=== PATIENT | female | born 1970 | race Caucasian/White ===

== ENCOUNTER → 2016-06-24 | Outpatient (CLI) | payer OTHER ==
[~2016-06-24] MED LIST: AFRIN NASAL SPR15 ML NS; ALBUTEROL17 GM INH; AMITRYPTYLINE; AMOX TR-K CLV 81 TA2; AMOXICILLIN500 M1 PO; ANTIVERT PO; ATARAX PO; BACTRIM DS TABL1 TAB PO; BENTYL10 MG DOB; BENZONATATE PO; BUSPAR PO; CELEXA PO; CIPRO PO; CLEOCIN HCL300 M1 PO; DESYREL100 MG PO; DICLOFENAC PO; DOXYCYCLINE HY100 M1 PO; FLEXERIL PO; FLEXERIL10 MG PO; GUAIFENSEN DM PO; IBUPROFEN800 MG PO; KLONOPIN PO; KLONOPIN0.5 M1 PO; KLONOPIN1 MG PO; LAMICTAL PO; LAMICTAL100 MG PO; LEVAQUIN PO; LISINOPRIL; MAGIC MOUTH WASH PO; MEDROL PO; METOPROLOL SUCC25 MG PO; MOBIC PO; NAPROXEN250 MG PO; NEURONTIN PO; NEURONTIN100 MG PO; NITROGLYGERIN0.4 MG SL; NO MEDICATIONS; OMEPRAZOLE20 M1 PO; OMEPRAZOLE40 MG PO; PERCOCET5/325 PO; PHENERGAN25 MG PO; PREDNISONE PO; PRILOSEC20 MG; QVAR7.3 GM INH; REMERON PO; SEROQUEL PO; SEROQUEL100 MG PO; SEROQUEL25 MG PO; TRAZODONE PO; ULTRAM PO; VOLTAREN75 MG PO; ZITHROMAX PO; ZOFRAN ODT4 MG PO; ZYRTEC-D T1 TAB.SR . PO; ZYRTEC-D TABLE1 EACH PO
--- NOTE | ~2016-06-24 | MR17 ---
[facility] A Service of [facility] & [facility] RADIOLOGY TEXT RESULTS PATIENT: FITO CONRAD LOCATION: [facility] : 71 UNIT #: [id number] AGE: [address]: Samir Grace II, MD SEX: F ORDER DR: [id number] [facility] [address] [place], [place] [address] [id number] O MR#: [id number] Acc #: [id number] NAME: FITO CONRAD. : 1970 SEX: F STUDY DATE/TIME: 06/24/2016 13:03 UNIT: [facility] ROOM: STUDY DESCRIPTION: MR Brain WWo Contrast Attending Physician: Samir Grace II., M.D. Referring Physician: Samir Grace II., M.D. Ordering Physician: Samir Grace II., M.D. Primary Care Physician: Indiana Higgins M.D. MRI CENTER REPORT This report is preliminary unless electronic signature is present. EXAM MRI of the brain with and without. HISTORY Numbness. Continued symptoms of blurred vision and slurred speech with clinical concern for multiple sclerosis though a lumbar puncture was negative for patient. Bilateral extremity numbness, arms and legs. Please reevaluate for the possibility of multiple sclerosis. Patient has a history of melanoma. COMMENT MRI of the brain was performed prior to and following intravenous administration of 11 mL of MultiHance. There is redemonstration of nonspecific white matter signal abnormality with multiple small subcortical lesions. Most of these are only a few millimeter in dimension but there is 1 focal lesion at the right lateral frontal subcortical white matter that measures up to about 11 mm in dimension. Is was present previously and is not changed. Minimal signal abnormality at the anterior aspect of the right external capsule and possibly in the right putamen. The putamen lesion might be new since it is was not seen previously. There is no MRI evidence for intracranial hemorrhage. There is no abnormally restricted diffusion. I believe the white matter disease is fairly stable. There is no extraaxial fluid collection. The major intracranial flow voids are maintained. The mastoid air cells are clear. Following contrast administration, there is no pathologic intracranial enhancement. No intracranial mass lesion. Redemonstrated is extensive paranasal sinus disease. This includes complete opacification of the frontal sinuses with signal characteristics suggestive of inspissated secretions. possibly fungal colonization. Also, again seen is opacification of the anterior ethmoid air cells, right greater than left. There is mucosal disease in the right greater than STS. [facility] A Service of [facility] RADIOLOGY TEXT RESULTS PATIENT: FITO CONRAD LOCATION: [facility] : 71 UNIT #: [id number] AGE: [address]: Samir Grace II, MD SEX: F ORDER DR: left maxillary sinus with a small air-fluid level in the right maxillary sinus. Paranasal sinus disease present previously with some improvement overall since prior, particularly in the appearance of the maxillary and sphenoid sinuses but the frontal sinus disease is chronic and unchanged to mildly worsened. I cannot exclude some component of expansion at this time and presence of a possible mucocele in the differential. Correlation with CT of the paranasal sinuses would be helpful to assess bony integrity. IMPRESSION 1. Redemonstration of nonspecific white matter signal abnormality. It is not associated with mass effect, pathologic enhancement, or restricted diffusion and it is probably not significantly changed from study of 05/06/2014. The differential based upon imaging still includes demyelinating disease such as multiple sclerosis with other considerations being Lyme disease, sequelae of severe longstanding migraine , sequelae of less likely entities such as vasculitis. 2. Tiny lesion in right putamen, probably new from prior. Very nonspecific. 3. Redemonstration of extensive paranasal sinus disease. This includes an air-fluid level in the right maxillary sinus consistent with a component of acute sinusitis. This also includes complete opacification of the frontal sinuses with possible component expansion. Recommend correlation with a CT of the paranasal sinuses without contrast to assess bony integrity. Possibility of mucocele formation in the right frontal sinus is considered in the differential. STAT * RESULT Dictated by... Monika Jones M.D. THIS IS AN ELECTRONICALLY VERIFIED REPORT Monika Jones M.D. at 06/25/2016 5:26 PM STEPAN/ashley TD: 06/25/2016 16:16 JOB #: [id number] MRI CENTER REPORT Page 1 of 1 COPY
== END | disposition home or self-care (01) ==
LOC: CMRI 12:26
DX: R20.0 Anesthesia of skin (principal); R90.82 White matter disease, unspecified; G93.89 Other specified disorders of brain; J32.9 Chronic sinusitis, unspecified
CPT/HCPCS: 70553; A9577

== ENCOUNTER 2016-08-13 15:21 | Observation (INO) | payer OTHER ==
--- NOTE | ~2016-08-13 | EKG ---
PATIENT: FITO CONRAD UNIT #: [id number] Ventricular Rate: 55 BPM Atrial Rate: 55 BPM P-R Interval: 144 ms QRS Duration: 88 ms Q-T Interval: 462 ms QTC Calculation(Bezet): 441 ms P [place]: 7 degrees Calculated R [place]: 90 degrees Calculated T [place]: 67 degrees Diagnosis Line: Sinus bradycardia Diagnosis Line: Rightward axis Diagnosis Line: Borderline ECG Diagnosis Line: When compared with ECG of 13-AUG-2016 17:20, Diagnosis Line: (unconfirmed) Diagnosis Line: No significant change was found Diagnosis Line: Confirmed by NEIL SULTANA MD ([id number]) on Diagnosis Line: 08/14/2016 11:08:08 AM INTERPRETING YI BILLINGS
--- NOTE | ~2016-08-13 | CR72 ---
[facility] A Service of [facility] & [facility] RADIOLOGY TEXT RESULTS PATIENT: FITO CONRAD LOCATION: [facility] 322- : 72 UNIT #: [id number] AGE: [address]: Dinora Stallworth MD SEX: F ORDER DR: [id number] [facility] [address] [place], [place] [address] [id number] I MR#: [id number] #: [id number] NAME: FITO CONRAD. : 1970 SEX: F STUDY DATE/TIME: 08/13/2016 17:32 UNIT: [address] ROOM: [facility] STUDY DESCRIPTION: CR Chest Single View Portable Attending Physician: Dinora Stallworth M.D. Ordering Physician: Landon Robles M.D. Primary Care Physician: No Primary Care Physician MEDICAL IMAGING REPORT This report is preliminary unless electronic signature is present EXAM Single view chest. INDICATION Chest pain. Heart palpitations. FINDINGS Single portable AP view of the chest compared to 06/07/2015. The heart and mediastinal contours are unchanged. There is a focal area of increased interstitial markings in the right suprahilar region. Correlate for any evidence of a pneumonia. No pleural effusion. IMPRESSION 1. Slightly increased interstitial prominence in the right suprahilar region. Correlate for any evidence of pneumonia. Dictated by... John Pittman M.D. THIS IS AN ELECTRONICALLY VERIFIED REPORT John Pittman M.D. at 08/14/2016 8:43 AM PADMAJA/celio TD: 08/14/2016 01:04 JOB #: [id number] MEDICAL IMAGING REPORT Page 1 of 1 COPY
--- NOTE | ~2016-08-13 | DS ---
Unit #: [id number] #: [id number] Patient: FITO CONRAD [id number] [address] [address] [id number] I MR#: [id number] NAME: FITO CONRAD ROOM: 322 Age: 46 Sex: F Admission Date: 08/13/2016 : 1970 Discharge Date: 08/14/2016 Attending Physician: Dinora Stallworth M.D. Primary Care Physician: Primary Care Physician No DISCHARGE SUMMARY SHORT STAY SUMMARY REASON FOR HOSPITAL ADMISSION Chest pain. HISTORY OF PRESENT ILLNESS The patient is a 46-year-old female who states that she follows with Dr. Gann at [facility]. Apparently, in 2010 the patient had a cardiac catheterization which showed a mid RCA 20% lesion with preserved LVEF. According to records from [facility], she had a normal Lexiscan Cardiolite stress test in February 2015 with an EF of 72%. Dr. Gann follows her for possible SVT versus atrial tachycardia. She does have past medical history of hypertension, chronic back pain and tobaccoism. The patient was seen in our facility for a lumbar puncture for a workup for multiple sclerosis. During the procedure, the patient reports that while she was lying on her stomach, she experienced palpitations and chest pain that radiated to her left arm during the procedure. She describes the pain as intermittent stabbing. There was no diaphoresis or shortness of breath. Patient was admitted for further workup. Her troponin was found to be less than 0.03 and an EKG was unremarkable. PAST MEDICAL HISTORY 1. Catheterization in 2010 mid RCA 40% lesion. 2. Lexiscan Cardiolite stress test from 02/18/2015, normal, with an LVEF of 72% at [facility]. 3. Possible PSVT versus atrial tachycardia. 4. Chronic back pain. 5. Possible multiple sclerosis. 6. Tobaccoism. PAST SURGICAL HISTORY Laparoscopic cholecystectomy. HOME MEDICATIONS 1. Klonopin 1 mg p.o. t.i.d. 2. Seroquel 100 mg p.o. q.a.m. 3. Seroquel 200 mg p.o. q.p.m. 4. Metoprolol 25 mg p.o. daily. ALLERGIES Include: Unit #: [id number] #: [id number] Patient: FITO CONRAD 1. Penicillin. 2. Morphine. 3. Hydrocodone. SOCIAL HISTORY Patient endorses that she will smoke a pack of cigarettes every other day and she has been smoking for 25 years. She denies illicit drug abuse or alcoholism. REVIEW OF SYSTEMS A 10-point review of systems has been done and is considered otherwise negative unless indicated in the HPI. PHYSICAL EXAMINATION VITAL SIGNS: Temperature 97.3, heart rate 57, respirations 18, blood pressure 101/68, she is oxygenating 96%. GENERAL: The patient is awake, alert, in no acute distress. HEENT: Head is atraumatic, normocephalic. Pupils equal, round and reactive. Extraocular movements are intact. No drainage from ears or nares. NECK: Supple. Trachea is midline. LUNGS: Diminished bilaterally with faint expiratory wheezes. HEART: S1, S2. Regular rate and rhythm. No murmurs, rubs, or gallops are appreciated. ABDOMEN: Soft, nontender, nondistended. Bowel sounds are positive in all four quadrants. EXTREMITIES: No clubbing, edema or cyanosis. SKIN: Warm, dry and intact with no unusual rashes or lesions. NEUROLOGIC: The patient is alert and oriented times 3, he is pleasant, conversant, no focal deficits. DIAGNOSTIC STUDIES LABORATORY: White blood cell count 8.1, hemoglobin 14.5, hematocrit 43.2, platelets 263. Sodium 136, potassium 3.4, chloride 105, CO2 is 23, BUN 13, creatinine 0.6, glucose 92. Troponin less than 0.03. CARDIOVASCULAR: EKG reads unremarkable. ASSESSMENT 1. Chest pain, likely noncardiac. 2. Nonobstructive coronary artery disease per catheterization in 2010. 3. Normal Lexiscan Cardiolite stress test 02/18/2015 with an LVEF of 72%. 4. Chronic back pain. 5. Possible multiple sclerosis, status post lumbar puncture. 6. Tobaccoism. PLAN 1. At this time, Dr. Andre has seen the patient and records have been obtained from [facility]. Dr. Andre has looked at these records. 2. At this time, we will discharge the patient home and have her follow up with Dr. Gann in one to two days. 3. Will discharge the patient home on a trial of nitroglycerin sublingual. 4. Again, troponins were negative. DISCHARGE MEDICATIONS 1. Seroquel 100 mg p.o. q.a.m. Unit #: [id number] #: [id number] Patient: FITO CONRAD 2. Seroquel 200 mg p.o. q.p.m. 3. Klonopin 1 mg p.o. t.i.d. 4. Metoprolol succinate 25 mg p.o. daily. 5. Nitroglycerin 0.4 mg sublingual every 5 minutes times 3 p.r.n. DISCHARGE INSTRUCTIONS 1. Follow up with Dr. Gann in one to two days. 2. Follow up with primary care provider in one week. 3. Seek medical attention or return to the ER if signs or symptoms worsen. DISPOSITION She will be discharged home. DISCHARGE ACTIVITY As tolerated. DIET Healthy-heart diet. Dictated by... Brianna Bates A.P.R.N. for Domingo Andre M.D. AM/quin TD: 08/14/2016 20:51 JOB #: [id number] DISCHARGE SUMMARY Page 1 of 1 X Brianna Bates APRN X DISCHARGE SUMMARY
--- NOTE | ~2016-08-13 | EKG ---
PATIENT: FITO CONRAD UNIT #: [id number] Ventricular Rate: 65 BPM Atrial Rate: 375 BPM QRS Duration: 94 ms Q-T Interval: 452 ms QTC Calculation(Bezet): 470 ms Calculated R [place]: 81 degrees Calculated T [place]: 36 degrees Diagnosis Line: Normal sinus rhythm Diagnosis Line: Baseline wander repeat ECG Diagnosis Line: Abnormal ECG Diagnosis Line: Diagnosis Line: Confirmed by NEIL SULTANA MD ([id number]) on Diagnosis Line: 08/14/2016 11:01:54 AM INTERPRETING YI BILLINGS
[~2016-08-13 15:21] MED LIST changes: -KLONOPIN1 MG PO; -METOPROLOL SUCC25 MG PO; -NITROGLYGERIN0.4 MG SL; -SEROQUEL PO; -SEROQUEL100 MG PO
[2016-08-13 17:31] LABS: POC - CKMB 1.5 ng/mL (0.0-7.9); POC - TROPONIN <0.05 ng/mL (<=0.05)
[2016-08-13 17:46] LABS: BASOPHIL# 0.1 X10e3 (0-0.3); BASOPHIL% 0.6 % (0-2.5); EOSINOPHIL# 0.1 X10e3 (0-0.7); EOSINOPHIL% 1.4 % (0.0-7.0); HEMATOCRIT 43.3 % (35.0-45.0); HEMOGLOBIN 14.5 gm/dL (12.0-16.0); LYMPHOCYTE# 4.5 X10e3 (1.0-3.5); LYMPHOCYTE% 55.6 % (17.0-45.0); MEAN CELL VOLUME 92.9 FL (83-96); MEAN CORPUSCULAR HEMOGLOBIN 31.1 PG (28-34); MEAN CORPUSCULAR HGB CONC 33.5 g/dL (30-36); MEAN PLATELET VOLUME 9.1 FL (6.5-11.5); MONOCYTE# 0.5 X10e3 (0-1.0); MONOCYTE% 5.9 % (3.0-12.0); NEUTROPHIL% 36.5 % (40-75); PLATELET COUNT 263 X10e3 (140-420); RED BLOOD COUNT 4.66 X10e (3.90-5.30); RED CELL DISTRIBUTION WIDTH 13.8 % (11.0-15.5); WHITE BLOOD COUNT 8.1 X10e3 (4.0-10.5)
[2016-08-13 17:47] LABS: DIFF IND YES
[2016-08-13 18:03] LABS: PLATELET ESTIMATE NORMAL (NORMAL)
[2016-08-13 18:06] LABS: ALBUMIN SERUM 4.9 g/dL (3.5-5.0); BILIRUBIN, DIRECT 0.1 mg/dL (0.0-0.2); BILIRUBIN,INDIRECT 0.5 mg/dL (0.0-0.9); BILIRUBIN,TOTAL 0.6 mg/dL (0.2-2.0); BUN/CREATININE RATIO 21.66; CALCIUM SERUM 9.6 mg/dL (8.4-10.2); CREATININE SERUM 0.6 mg/dL (0.6-1.4); GLOM FILT RATE Estimated 110.1 mL/min (>60); MAGNESIUM 2.1 mg/dL (1.6-3.0); POTASSIUM 3.4 mmol/L (3.5-5.1); PROTEIN TOTAL SERUM 8.3 g/dL (6.0-8.3)
[2016-08-13] MEDS ORDERED: KLONOPIN1 MG PO (19:04)
[2016-08-13] MEDS ORDERED: SEROQUEL100 MG PO (19:04)
[2016-08-13] MEDS ORDERED: SEROQUEL PO (19:05)
[2016-08-13] MEDS ORDERED: METOPROLOL SUCC25 MG PO (19:06)
[2016-08-13 20:25] LABS: POC - CKMB <1.0 ng/mL (0.0-7.9); POC - TROPONIN <0.05 ng/mL (<=0.05)
[2016-08-14 04:57] LABS: %MB 1.4 % (0.0-4.0); MB 1.6 ng/ml
[2016-08-14 12:15] LABS: CHOLESTEROL 146 mg/dL (0-200); HDL CHOLESTEROL 57 mg/dL (35-95); LDL CHOLESTEROL 75 mg/dL (-130); LDL/HDL RATIO 1 RATIO (0-4); TRIGLYCERIDES 68 mg/dL (10-160)
[2016-08-14] MEDS ORDERED: NITROGLYGERIN0.4 MG SL (14:55)
[2016-08-16 12:17] LABS: HSV 1 DNA Not Detected (Not Detected); HSV 2 DNA Not Detected (Not Detected)
== END 2016-08-14 15:15 | disposition home or self-care (01) ==
LOC: CED 15:21 → CEDOF 18:55 → C3A PCU 18:55 → CEDOF 20:10 → CED 20:10 → C3A PCU 22:46 → CEDOF 22:46 → C3A PCU 22:46
PROVIDERS: Emergency Medicine; Internal Medicine Cardiovascular Disease
DX: R07.89 Other chest pain (principal); I25.10 Atherosclerotic heart disease of native coronary artery without angina pectoris; J98.4 Other disorders of lung; I10 Essential (primary) hypertension; M54.5 Low back pain; F17.210 Nicotine dependence, cigarettes, uncomplicated; F41.9 Anxiety disorder, unspecified; F32.9 Major depressive disorder, single episode, unspecified; Z98.890 Other specified postprocedural states; Z90.49 Acquired absence of other specified parts of digestive tract; Z90.710 Acquired absence of both cervix and uterus; Z88.5 Allergy status to narcotic agent; Z88.0 Allergy status to penicillin
CPT/HCPCS: 36415; 71010; 80048; 80061; 80076; 82550; 82553; 83735; 84443; 84484; 85025; 87529; 93005; 96374; 96375; 96376; 99285; G0378; J1170; J1885; J2060; J2405

== ENCOUNTER → 2016-08-13 | Outpatient (CLI) | payer OTHER ==
--- NOTE | ~2016-08-13 | XA198 ---
[facility] A Service of [facility] RADIOLOGY TEXT RESULTS PATIENT: FITO CONRAD LOCATION: [facility] : 71 UNIT #: [id number] AGE: [address]: BRIANNA LEONG APRN SEX: F ORDER DR: [id number] [facility] [address] [place], [place] [address] [id number] O MR#: [id number] Acc #: [id number] NAME: FITO CONRAD. : 1970 SEX: F STUDY DATE/TIME: 08/13/2016 14:09 UNIT: [facility] ROOM: STUDY DESCRIPTION: XA Spinal Puncture Attending Physician: Brianna Leong Aprn Referring Physician: Brianan Leong Aprn Ordering Physician: Brianna Leong Aprn Primary Care Physician: Indiana Higgins M.D. MEDICAL IMAGING REPORT This report is preliminary unless electronic signature is present EXAM Lumbar puncture under fluoroscopy HISTORY SUPPLIED Headaches. Procedure intent, risks and options were discussed with the patient. He understands and wishes to proceed. The patient is evaluated for many things including MS. Patient was placed in the prone position. Skin was prepped and draped over the lower lumbar spine. Utilizing maximal sterile barrier technique and local anesthesia a 20-gauge spinal needle was inserted at the L3-4 level; 23 mL of clear CSF was collected in four tubes. Needle was removed. Total fluoroscopy time 0.6 minutes. Total exposure 13 mGy air kerma standard. Two spot radiographs were obtained. CONCLUSION Successful lumbar puncture under fluoroscopy. Dictated by... Zheng Lowe M.D. THIS IS AN ELECTRONICALLY VERIFIED REPORT Zheng Lowe M.D. at 08/15/2016 7:24 AM JUAN PABLO/vero TD: 08/13/2016 23:09 JOB #: [id number] [facility] A Service [facility] RADIOLOGY TEXT RESULTS PATIENT: IFTO CONRAD LOCATION: [facility] : 72 UNIT #: [id number] AGE: [address]: BRIANNA LEONG APRN SEX: F ORDER DR: MEDICAL IMAGING REPORT Page 1 of 1 COPY
--- NOTE | ~2016-08-13 | EKG ---
PATIENT: FITO CONRAD UNIT #: [id number] Ventricular Rate: 65 BPM Atrial Rate: 267 BPM P-R Interval: 126 ms QRS Duration: 88 ms Q-T Interval: 440 ms QTC Calculation(Bezet): 457 ms P [place]: 41 degrees Calculated R [place]: 90 degrees Calculated T [place]: 71 degrees Diagnosis Line: Normal sinus rhythm Diagnosis Line: Rightward axis Diagnosis Line: Nonspecific T wave abnormality Diagnosis Line: Abnormal ECG Diagnosis Line: When compared with ECG of 20-FEB-2015 21:54, Diagnosis Line: No significant change was found Diagnosis Line: Confirmed by NEIL SULTANA MD ([id number]) on Diagnosis Line: 08/14/2016 10:58:22 AM INTERPRETING YI BILLINGS
[2016-08-13 12:45] LABS: HEMATOCRIT 44.3 % (35.0-45.0); HEMOGLOBIN 14.6 gm/dL (12.0-16.0); MEAN CELL VOLUME 93.8 FL (83-96); MEAN PLATELET VOLUME 8.5 FL (6.5-11.5); RED BLOOD COUNT 4.73 X10e (3.90-5.30); RED CELL DISTRIBUTION WIDTH 13.6 % (11.0-15.5); WHITE BLOOD COUNT 6.9 X10e3 (4.0-10.5)
[2016-08-13 13:13] LABS: PARTIAL THROMBOPLASTIN TIME 29.4 SECONDS (23.5-31.3); PROTHROMBIN TIME (PATIENT) 11.2 SECONDS (10.0-11.7)
[2016-08-13 15:17] LABS: GLUCOSE-CSF 63 mg/dL (50-80); LDH-CSF 16 IU/L; PROTEIN-CSF 42 mg/dL (15-45)
[2016-08-13 16:31] LABS: CSF APPEARANCE CLEAR (CLEAR); CSF NEUTROPHIL 0 %; CSF RBC 1 CMM (0); CSF TUBE NUMBER 2; CSF WBC 0 CMM (0-8); CSF XANTHACHROMIC NO
[2016-08-13 16:32] LABS: CSF LYMPHOCYTE 82 %; CSF MONOCYTE 18 %
[2016-08-14 08:35] LABS: CRYPTO AG CSF/SERUM NEG (NEG); CRYPTO AG SOURCE CSF
[2016-08-15 16:27] LABS: SPE A1GLOB (PNL) 0.3 g/dL (0.2-0.3); SPE A2GLOB (PNL) 0.7 g/dL (0.5-0.9); SPE ALB (PNL) 4.3 g/dL (3.8-4.8); SPE BETA 1 GLOBULIN 0.4 g/dL (0.4-0.6); SPE BETA 2 GLOBULIN 0.3 g/dL (0.2-0.5); SPE GAMMA (PNL) 1.3 g/dL (0.8-1.7); SPETP (PNL) 7.4 g/dL (6.1-8.1)
== END | disposition home or self-care (01) ==
LOC: CIVR 12:01
PROVIDERS: Nurse Practitioner Family
DX: R90.89 Other abnormal findings on diagnostic imaging of central nervous system (principal); R20.0 Anesthesia of skin; R93.0 Abnormal findings on diagnostic imaging of skull and head, not elsewhere classified
CPT/HCPCS: 36415; 77003; 82040; 82164; 82784; 82945; 83605; 83615; 83873; 83883; 83916; 84157; 84165; 85027; 85610; 85730; 86334; 86593; 87070; 87205; 87899; 88108; 89051; 93005